=== PATIENT | female | born 1990 | race Caucasian/White ===

== ENCOUNTER 2021-11-15 11:06 | Outpatient (REF) | payer SELFPAY ==
[2021-11-15 12:06] LABS: SARS PCR* Negative SARS-CoV-2 (Negative)
== END 2021-11-15 11:07 | disposition home or self-care (01) ==
LOC: NPINS 11:06
PROVIDERS: Visit Provider Internal Medicine
DX: Z20.822 Contact with and (suspected) exposure to COVID-19 (principal)
CPT/HCPCS: 87635

== ENCOUNTER 2021-11-18 21:03 | Outpatient (CLI) | payer MEDICAID, SELFPAY | END 2021-11-18 21:04 | disposition home or self-care (01) | PROVIDERS: Visit Provider Internal Medicine | DX: G47.33 Obstructive sleep apnea (adult) (pediatric) (principal) | CPT/HCPCS: 95811 ==